=== PATIENT | female | born 1965 | race Two or more races ===

== ENCOUNTER 2019-12-25 16:46 | Emergency (ER) | payer MEDICAID, OTHER ==
[~2019-12-25] VITALS: Ht 152.4 cm; Wt 68.0 kg
[2019-12-25] MEDS ORDERED: ACETAMINOPHEN 325MG TABLET PO ONE (17:45)
[2019-12-25 19:01] VITALS: BP 170/89
== END 2019-12-25 19:02 | disposition home or self-care (01) ==
LOC: ER 16:46
DX: S93.491A Sprain of other ligament of right ankle, initial encounter (principal); X50.1XXA Overexertion from prolonged static or awkward postures, initial encounter; Y93.89 Activity, other specified; Y92.89 Other specified places as the place of occurrence of the external cause
CPT/HCPCS: 73600; 73630; 99284

== ENCOUNTER 2022-01-17 16:32 | Emergency (ER) | payer OTHER ==
[~2022-01-17] VITALS: Ht 152.4 cm; Wt 79.0 kg
[2022-01-17] MEDS ORDERED: KETOROLAC 60MG/2ML VIAL IM ONE (18:30)
[2022-01-17] MEDS ORDERED: ACETAMINOPHEN 325MG TABLET PO ONE (18:30)
[2022-01-17 18:58] LABS: CLARITY URINE CLEAR (CLEAR); COLOR URINE YELLOW (YELLOW); KETONES URINE NEGATIVE (NEGATIVE); LEUKOCYTE ESTERASE URINE NEGATIVE (NEGATIVE); NITRITE URINE NEGATIVE (NEGATIVE); OCCULT BLOOD URINE NEGATIVE (NEGATIVE); PH URINE 5.5 (4.5-8.0); PROTEIN URINE NEGATIVE (NEGATIVE); SPECIFIC GRAVITY URINE 1.015 (1.005-1.030)
[2022-01-17 19:09] LABS: BASOPHILS % 0.6 % (0.0-2.0); EOSINOPHILS % 0.8 % (0.0-5.0); HEMATOCRIT. 41.5 % (36.0-48.0); HEMOGLOBIN. 13.9 g/dL (12.0-16.0); LYMPHOCYTES % 27.2 % (20.0-50.0); MEAN CORPUSCULAR HEMOGLOBIN 28.4 pg (28.0-32.0); MEAN CORPUSCULAR VOLUME 84.7 fL (81.0-99.0); MEAN PLATELET VOLUME 9.9 fl (7.4-10.4); MONOCYTES % 11.1 % (2.0-8.0); NEUTROPHILS % 60.3 % (40.0-76.0); PLATELET 216 x1000/uL (130-400); RED CELL DISTRIBUTION WIDTH 13.9 % (11.6-14.6)
[2022-01-17 19:30] LABS: CHLORIDE 105 mEq/L (98-107)
[2022-01-17] MEDS ORDERED: TOPUD PO (19:51)
[2022-01-17] MEDS ORDERED: IBUP-2028 MT (19:51)
[2022-01-17 20:15] VITALS: BP 94/74
== END 2022-01-17 20:17 | disposition home or self-care (01) ==
LOC: ER 16:32
DX: R10.32 Left lower quadrant pain (principal)
CPT/HCPCS: 36415; 76830; 76856; 80053; 81003; 81025; 83690; 85025; 96372; 99284; J1885